=== PATIENT | female | born 1950 | race Caucasian/White ===

== ENCOUNTER 2018-12-25 17:18 | Inpatient (IN) | payer MEDICARE, MEDICAID ==
[~2018-12-25] VITALS: Ht 165.1 cm; Wt 86.2 kg
[2018-12-25] MEDS ORDERED: ALBU18HF2 IH (19:36)
[2018-12-25] MEDS ORDERED: TAMS-12 PO (19:36)
[2018-12-25] MEDS ORDERED: ACET325T53 PO (19:36)
[2018-12-25] MEDS ORDERED: CYAN-51 PO (19:36)
[2018-12-25] MEDS ORDERED: ERGO500040 PO (19:36)
--- NOTE | 2018-12-25 20:00 | NUR ---
GPS TOOLMAKER HELPER NOTES: ADMITTED A 68 YO FEMALE FROM [facility] ON 5150 HOLD FOR DANGER TO OTHER. PATIENT CAME FROM [facility]IOR TO [facility]. PER HOLD, PATIENT SUFFERS FROM [place] AND ATTEMPTED TO STAFF NURSING STAFF WITH A METAL KNIFE. PATIENT IS UNDER THE CARE OF DR. PLUMMER AND [facility]. PATIENT WAS INITIALLY ADMITTED BY DAY SHIFT STAFF. BELONGINGS AND CONTRABAND CHECKED BY DAY SHIFT STAFF. UPON FACE TO FACE ASSESSMENT, PATIENT APPEARS UNKEMPT, DISORGANIZED, EASILY ANGERED, HAS THE TENDENCY TO YELL AND SCREAM BECAUSE SHE IS HARD OF HEARING. PATIENT IS ABLE TO AMBULATE, GUARDED AND UNPREDICTABLE. REALITY ORIENTATION DONE. PATIENT REFUSED TO HAVE FULL SKIN AND BODY ASSESSMENT THIS TIME. WILL TRY TO CONVINCE THE PATIENT IN THE MORNING. MED RECON DONE BY DADA SCHULZ NP. PATIENT SEEN BY DR. PLUMMER WITH NEW MEDICATION ORDER CARRIED OUT. PATIENT'S RIGHTS DISCUSSED, HANDBOOK GUIDE TO PRESCRIPTION MEDICATIONS PROVIDED. Q15 MIN CHECKS INITIATED. CARE PLAN STARTED. WILL MONITOR PATIENT FOR MOOD, SAFETY AND BEHAVIOR.
[2018-12-25 20:27] VITALS: BP 118/57
[2018-12-25] MEDS ORDERED: MAGNESIUM HYDROXIDE 30 ML UDC PO PRN (20:30)
[2018-12-25] MEDS ORDERED: LORAZEPAM 0.5 MG TABLET PO PRN (20:30)
[2018-12-25] MEDS ORDERED: ACETAMINOPHEN 325 MG TABLET PO PRN ×2 (20:30→23:00)
[2018-12-25] MEDS ORDERED: MAG HYDROX/AL HYDROX/SIMETH 30 ML UDC PO PRN (20:30)
[2018-12-25] MEDS: risperiDONE 1 MG TABLET PO SCH (22:41)
[2018-12-25] MEDS ORDERED: ALBUTEROL SULFATE 8 GM HFA.AER.AD IH PRN (23:00)
[2018-12-26] MEDS ORDERED: ALBUTEROL FS 2.5 MG/3 ML VIAL.NEB NEB PRN (07:30)
[2018-12-26 08:00] VITALS: BP 103/64
[2018-12-26] MEDS: CYANOCOBALAMIN 500 MCG TABLET PO SCH (08:30)
[2018-12-26] MEDS: risperiDONE 1 MG TABLET PO SCH ×2 (10:58→21:32)
[2018-12-26 11:10] LABS: CREATININE 0.9 mg/dL (0.6-1.3)
[2018-12-26 11:16] LABS: CHOLESTEROL 150 mg/dL (<200); HDL CHOLESTEROL 50 mg/dL (40-60); LDL 85 mg/dL (0-99); TRIGLYCERIDES 114 mg/dL (30-150)
--- NOTE | 2018-12-26 12:45 | NUR ---
DION called [facility] and spoke to the metal flow coordinator who is Bianca. She stated that she would call the SW back regarding whether or not the pt can return.
--- NOTE | 2018-12-26 13:53 | NUR ---
Initial Discharge Plan: Pt currently resides at a senior living facility called [facility] located at [address] [place] [address]. Per pt, she would like to return there because she has been there for 5 years. SW will work with the pt and the MD regarding appropriate discharge planning. SW will form a safe and proper discharge.
[2018-12-26 16:00] VITALS: BP 109/59
[2018-12-26 20:00] VITALS: BP 110/54
[2018-12-26] MEDS: TAMSULOSIN 0.4 MG CAP.SR.24H PO SCH (21:32)
[2018-12-27 08:00] VITALS: BP 127/57
[2018-12-27] MEDS: CYANOCOBALAMIN 500 MCG TABLET PO SCH (08:51)
[2018-12-27] MEDS ORDERED: ERGOCALCIFEROL (VITAMIN D 2) 50,000 UNIT CAPSULE PO SCH (09:00)
[2018-12-27] MEDS: risperiDONE 1 MG TABLET PO SCH ×2 (09:53→22:15)
--- NOTE | 2018-12-27 12:27 | NUR ---
GROUP NOTE: SW encouraged pt to attend group on 12/27/18 at 1000 but pt refused to attend stating she wanted to stay in her room.
[2018-12-27 16:06] VITALS: BP 115/67
[2018-12-27 20:00] VITALS: BP 123/66
[2018-12-27] MEDS: TAMSULOSIN 0.4 MG CAP.SR.24H PO SCH (22:15)
[2018-12-27] MEDS: TEMAZEPAM 7.5 MG CAPSULE PO PRN (22:15)
[2018-12-28 08:00] VITALS: BP 143/71
[2018-12-28] MEDS: CYANOCOBALAMIN 500 MCG TABLET PO SCH (09:11)
[2018-12-28] MEDS: risperiDONE 1 MG TABLET PO SCH ×2 (09:11→22:07)
[2018-12-28 16:00] VITALS: BP 118/69
--- NOTE | 2018-12-28 19:30 | NUR ---
GPS RN NOTE, RECEIVED PATIENT AWAKE AND IN BED, NO S/S OR COMPLAINTS OF PAIN AT THIS TIME. PATIENT IS DISPLAYING NO S/S OF APPARENT DISTRESS AT THIS TIME. PATIENT BREATHING IS UNLABORED WITH EQUAL RISE AND FALL OF THE CHEST. PATIENT IS ALERT AND ORIENTED X 2 ON ROOM AIR WITH A SPO2 OF 97 %. PATIENT IS MED COMPLAINT, DISORGANIZED, CONFUSED AT TIMES, GUARDED, PARANOID, COOPERATIVE, AND NEEDS REORIENTATION. PATIENT DENIES SUICIDE AND HOMICIDAL IDEATIONS AT THIS TIME. PATIENT ASSISTED WITH TURNING AND REPOSITIONING Q2HR AND PRN FOR COMFORT AND CIRCULATION. PATIENT HAS NO NEEDS AT THIS TIME. PATIENT EDUCATED ON THE USE OF THE CALL AMOR. PATIENT BED SIDE RAILS ARE UP X 2 FOR SAFETY, BED IS LOCKED, AND LOW WILL CONTINUE TO MONITOR AND MAINTAIN SAFETY.
[2018-12-28 20:00] VITALS: BP 143/89
[2018-12-28] MEDS: TAMSULOSIN 0.4 MG CAP.SR.24H PO SCH (22:07)
[2018-12-29 07:07] LABS: BASOPHILS % (AUTO) 0.6 % (0.0-2.0); EOSINOPHILS % (AUTO) 1.5 % (0.0-6.0); HEMATOCRIT 40 % (33-45); HEMOGLOBIN 13.4 g/dL (11.5-14.8); LYMPHOCYTES # (AUTO) 1.2 /CMM (0.8-4.8); LYMPHOCYTES % (AUTO) 17.2 % (20.0-44.0); MEAN CORPUSCULAR HGB CONC 33 g/dl (31.0-36.0); MEAN CORPUSCULAR VOLUME 93 fL (82-100); MONOCYTES # (AUTO) 0.5 /CMM (0.1-1.30); MONOCYTES % (AUTO) 7.6 % (2.0-12.0); NEUTROPHILS % (AUTO) 73.1 % (43.0-81.0); PLATELET COUNT (AUTO) 222 /CMM (150-450); RED BLOOD CELL COUNT(AUTO) 4.33 MIL/uL (4.0-5.2); WHITE BLOOD COUNT (AUTO) 6.8 K/uL (4.3-11.0)
[2018-12-29 07:13] LABS: CALCIUM, SERUM 9.1 mg/dL (8.5-10.1); CREATININE 0.9 mg/dL (0.6-1.3); PHOSPHORUS 3.6 mg/dL (2.5-4.9)
[2018-12-29 08:00] VITALS: BP 142/71
[2018-12-29] MEDS: risperiDONE 1 MG TABLET PO SCH ×2 (08:57→22:00)
[2018-12-29] MEDS: CYANOCOBALAMIN 500 MCG TABLET PO SCH (08:57)
[2018-12-29 16:00] VITALS: BP 125/70
--- NOTE | 2018-12-29 19:30 | NUR ---
GPS RN NOTE, RECEIVED PATIENT AWAKE AND IN BED, NO S/S OR COMPLAINTS OF PAIN AT THIS TIME. PATIENT IS DISPLAYING NO S/S OF APPARENT DISTRESS AT THIS TIME. PATIENT BREATHING IS UNLABORED WITH EQUAL RISE AND FALL OF THE CHEST. PATIENT IS ALERT AND ORIENTED X 2 ON ROOM AIR WITH A SPO2 OF 95 %. PATIENT IS MED COMPLAINT, DISORGANIZED, CONFUSED AT TIMES, GUARDED, PARANOID, COOPERATIVE, HARD OF HEARING, AND NEEDS REORIENTATION. PATIENT REFUSED SKIN ASSESSMENT. PATIENT DENIES SUICIDE AND HOMICIDAL IDEATIONS AT THIS TIME. PATIENT ASSISTED WITH TURNING AND REPOSITIONING Q2HR AND PRN FOR COMFORT AND CIRCULATION. PATIENT HAS NO NEEDS AT THIS TIME. PATIENT EDUCATED ON THE USE OF THE CALL AMOR. PATIENT BED SIDE RAILS ARE UP X 2 FOR SAFETY, BED IS LOCKED, AND LOW WILL CONTINUE TO MONITOR AND MAINTAIN SAFETY.
[2018-12-29 19:37] VITALS: BP 101/55
[2018-12-29] MEDS: TAMSULOSIN 0.4 MG CAP.SR.24H PO SCH (22:00)
[2018-12-30 08:00] VITALS: BP 109/59
[2018-12-30] MEDS: CYANOCOBALAMIN 500 MCG TABLET PO SCH (08:39)
[2018-12-30] MEDS: risperiDONE 1 MG TABLET PO SCH ×2 (08:39→21:03)
--- NOTE | 2018-12-30 15:10 | NUR ---
SW called [facility] and spoke to the financial services assistant dispute coordinator Rosario. She stated that she would like the SW to fax over updated notes and then she would inform the SW about whether or not the pt can return.
--- NOTE | 2018-12-30 15:10 | NUR ---
DION faxed updated notes to [facility] with attention to Rosario to the fax number: [phone].
[2018-12-30 16:00] VITALS: BP 104/57
[2018-12-30 19:49] VITALS: BP 130/56
[2018-12-30] MEDS: TAMSULOSIN 0.4 MG CAP.SR.24H PO SCH (21:04)
[2018-12-30] MEDS: TEMAZEPAM 7.5 MG CAPSULE PO PRN (21:34)
[2018-12-31 08:00] VITALS: BP 124/56
[2018-12-31] MEDS: risperiDONE 1 MG TABLET PO SCH ×2 (09:19→21:01)
[2018-12-31] MEDS: CYANOCOBALAMIN 500 MCG TABLET PO SCH (09:19)
--- NOTE | 2018-12-31 09:34 | NUR ---
Rosario from [facility] called the SW and stated that the pt can return to their facility because she is on the 6th day of her 7 day bed hold. SW stated that there is no discharge date at this time but the SW will keep her updated as much as she can.
[2018-12-31 16:00] VITALS: BP 104/59
--- NOTE | 2018-12-31 16:13 | NUR ---
Group Note: Pt did not attend group therapy session on 12/31/18 at 2pm discussing grief and loss. Pt stated that she did not want to participate because she was going to be discharged the next day.
--- NOTE | 2018-12-31 18:00 | NUR ---
PLEASANT,QUIET,NON COMMUNICATIVE.
[2018-12-31 20:15] VITALS: BP 129/53
[2018-12-31] MEDS: TAMSULOSIN 0.4 MG CAP.SR.24H PO SCH (21:01)
[2018-12-31] MEDS: TEMAZEPAM 7.5 MG CAPSULE PO PRN (21:50)
--- NOTE | 2019-01-01 07:30 | NUR ---
AWAKE,ALERT,CONFUSED.VS STABLE.NO COMPLAINTS,VERY COMPLIANT WITH MEDS.ANIAK.RECEIVED DC ORDERS.
[2019-01-01 08:00] VITALS: BP 119/67
[2019-01-01] MEDS: risperiDONE 1 MG TABLET PO SCH (08:52)
[2019-01-01] MEDS: CYANOCOBALAMIN 500 MCG TABLET PO SCH (08:52)
--- NOTE | 2019-01-01 11:15 | NUR ---
ALL PAPERS SIGNED INCLUDING BELONGING SHEET.DENIES SUICIDAL IDEATION,HOMICIDAL IDEATION AND COMMAND HALLUCINATIONS.REPORT CALLED TO BHAVYA AT FACILITY.DRIVERS HERE AND ADDITIONALLY DRIVERS GOT REPORT.TRANSFERRED VIA AMBULANCE TO FACILITY.
--- NOTE | 2019-01-01 15:37 | NUR ---
Discharge Note: Pt was being discharged to [facility] located at [address] [place] [id number]; . Pt was transported via [facility] at 11AM. Upon discharge, the pt appeared to be in a euthymic mood and presented with a calm affect. Pt denied both suicidal and homicidal ideation as well as auditory and visual hallucinations. Pt will be under the care of her psychiatrist, Dr. Vargas, located at [address] [place] [id number]; . Pt will also be under the care of her pierce and shave press operator, Dr. Nixon, located at [address] [place] [address]; .
== END 2019-01-01 12:40 | DRG 885 ==
LOC: GPS 17:18
PROVIDERS: ADMIT Psychiatry & Neurology Psychiatry; ATTEND Nurse Practitioner Acute Care
DX: F29 Unspecified psychosis not due to a substance or known physiological condition (principal); E44.1 Mild protein-calorie malnutrition; F20.9 Schizophrenia, unspecified; E53.8 Deficiency of other specified B group vitamins; F03.90 Unspecified dementia, unspecified severity, without behavioral disturbance, psychotic disturbance, mood disturbance, and anxiety; E88.09 Other disorders of plasma-protein metabolism, not elsewhere classified; Z68.31 Body mass index [BMI] 31.0-31.9, adult; R33.9 Retention of urine, unspecified; E86.0 Dehydration
CPT/HCPCS: 36415; 80048-TC; 80061-TC; 82565-TC; 83735-TC; 84100-TC; 85025-TC; 87081-TC